=== PATIENT | female | born 1960 | race African-American/Black ===

== ENCOUNTER 2017-11-03 12:18 | Emergency (ER) | payer MEDICAID, OTHER ==
[~2017-11-03] VITALS: Ht 162.6 cm; Wt 90.7 kg
[~2017-11-03 12:18] MED LIST: BENA20TA2 PO; GABA100C PO; SIMV20TA6 PO
[2017-11-03 13:38] VITALS: BP 148/73
--- NOTE | 2017-11-03 13:38 | NUR ---
Patient discharged to home in stable conditon. Written and verbal after care instructions given. Patient verbalizes understanding of instructions.
== END 2017-11-03 13:40 | disposition home or self-care (01) ==
LOC: ER 12:18
DX: Z76.0 Encounter for issue of repeat prescription (principal); G89.29 Other chronic pain; J11.1 Influenza due to unidentified influenza virus with other respiratory manifestations; I10 Essential (primary) hypertension; E78.5 Hyperlipidemia, unspecified
CPT/HCPCS: 99283; A4663

== ENCOUNTER 2024-04-03 00:30 | Emergency (ER) | payer MEDICARE, OTHER ==
[~2024-04-03] VITALS: Ht 162.6 cm; Wt 90.7 kg
[~2024-04-03 00:30] MED LIST changes: +AMLO10TA4 PO; +AMLO10TA59 PO; +ATOR40TA PO; -BENA20TA2 PO; +BENA20TA9 PO; +LISI20TA30 PO; +SIMV-46 PO; -SIMV20TA6 PO
[2024-04-03] MEDS ORDERED: HYDROMORPHONE 2 MG/1 ML DISP.SYRIN ONE (02:00)
[2024-04-03] MEDS ORDERED: ONDANSETRON ODT 4 MG TAB.RAPDIS ONE (02:00)
[2024-04-03] MEDS ORDERED: ONDA4TAB11 PO (02:02)
[2024-04-03] MEDS ORDERED: HYDR-3980 PO (02:02)
[2024-04-03] MEDS: ONDANSETRON ODT 4 MG TAB.RAPDIS SL ONE (02:05)
[2024-04-03] MEDS: HYDROMORPHONE 1 MG/1 ML DISP.SYRIN IM ONE (02:05)
[2024-04-03 02:25] VITALS: BP 118/66; TEMP 98; O2SAT 98
== END 2024-04-03 02:26 | disposition home or self-care (01) ==
LOC: ER 00:35
DX: M54.2 Cervicalgia (principal); I10 Essential (primary) hypertension; E78.5 Hyperlipidemia, unspecified; Z98.890 Other specified postprocedural states; Z79.899 Other long term (current) drug therapy
CPT/HCPCS: 99285; 72125; 96372; J1170; A4606; A4663; Q0162

== ENCOUNTER 2024-12-24 20:38 | Emergency (ER) | payer MEDICARE, OTHER ==
[~2024-12-24] VITALS: Ht 162.6 cm; Wt 90.7 kg
[~2024-12-24 20:38] MED LIST changes: +HYDR-3980 PO; +ONDA4TAB11 PO
[2024-12-24] MEDS ORDERED: OXYC-133 PO (23:33)
[2024-12-24] MEDS ORDERED: ONDA4TAB11 PO (23:33)
[2024-12-24] MEDS ORDERED: ONDANSETRON ODT 4 MG TAB.RAPDIS ONE (23:41)
[2024-12-24] MEDS ORDERED: HYDROMORPHONE 2 MG/1 ML DISP.SYRIN ONE (23:41)
[2024-12-24] MEDS: HYDROMORPHONE 1 MG/1 ML DISP.SYRIN IM ONE (23:44)
[2024-12-24] MEDS: ONDANSETRON ODT 4 MG TAB.RAPDIS SL ONE (23:44)
[2024-12-24 23:54] VITALS: BP 150/85; O2SAT 98
== END 2024-12-24 23:53 | disposition home or self-care (01) ==
LOC: ER 20:38
DX: G89.29 Other chronic pain (principal); M54.2 Cervicalgia; M25.531 Pain in right wrist; I10 Essential (primary) hypertension; E78.5 Hyperlipidemia, unspecified; Z79.899 Other long term (current) drug therapy; Z87.09 Personal history of other diseases of the respiratory system
CPT/HCPCS: 99283; 96372; J1171; A4606; A4663; Q0162

== ENCOUNTER 2025-05-14 20:05 | Emergency (ER) | payer MEDICARE, OTHER ==
[~2025-05-14] VITALS: Ht 162.6 cm; Wt 90.7 kg
[~2025-05-14 20:05] MED LIST changes: +OXYC-133 PO
[2025-05-14] MEDS ORDERED: diphenhydrAMINE 25 MG CAP PO ONE (20:50)
[2025-05-14] MEDS ORDERED: ONDANSETRON ODT 4 MG TAB.RAPDIS ONE (20:50)
[2025-05-14] MEDS ORDERED: HYDROMORPHONE 1 MG/1 ML DISP.SYRIN ONE (20:51)
[2025-05-14] MEDS ORDERED: OXYC-133 PO (20:53)
[2025-05-14] MEDS: diphenhydrAMINE 25 MG CAP PO ONE (21:00)
[2025-05-14] MEDS: ONDANSETRON ODT 4 MG TAB.RAPDIS SL ONE (21:00)
[2025-05-14] MEDS: HYDROMORPHONE 1 MG/1 ML DISP.SYRIN IM ONE (21:00)
[2025-05-14 22:10] VITALS: BP 120/67; O2SAT 98
== END 2025-05-14 21:17 | disposition home or self-care (01) ==
LOC: ER 20:15
DX: G89.29 Other chronic pain (principal); M25.561 Pain in right knee; E78.5 Hyperlipidemia, unspecified; I10 Essential (primary) hypertension; Z79.899 Other long term (current) drug therapy; Z87.09 Personal history of other diseases of the respiratory system
CPT/HCPCS: A4606; A4663; J1171; Q0162; Q0163